=== PATIENT | female | born 1955 | race Caucasian/White ===

== ENCOUNTER 2016-11-19 14:24 | Outpatient (CLI) | payer OTHER | END 2016-11-19 14:25 | disposition home or self-care (01) | DX: I10 Essential (primary) hypertension (principal); E78.5 Hyperlipidemia, unspecified; E11.9 Type 2 diabetes mellitus without complications; E21.3 Hyperparathyroidism, unspecified ==

== ENCOUNTER 2017-03-24 14:35 | Outpatient (CLI) | payer OTHER | END 2017-03-24 14:36 | disposition home or self-care (01) | LOC: LAB.F 14:35 | PROVIDERS: ATTEND Family Medicine | DX: M79.1 Myalgia (principal) | CPT/HCPCS: 36415; 82550 ==

== ENCOUNTER 2017-03-26 11:13 | Outpatient (CLI) | payer OTHER | END 2017-03-26 11:14 | disposition home or self-care (01) | LOC: DI 11:13 | PROVIDERS: ATTEND Family Medicine | DX: R06.00 Dyspnea, unspecified (principal); I10 Essential (primary) hypertension; I51.7 Cardiomegaly | CPT/HCPCS: 93306 ==

== ENCOUNTER 2018-04-06 08:00 | Outpatient (CLI) | payer OTHER ==
[2018-04-06 17:24] LABS: BASOPHILS # (AUTO) 0.1 10^3/uL (0.0-0.1); BASOPHILS % (AUTO) 0.8 %; EOSINOPHILS # (AUTO) 0.4 10^3/uL (0.0-0.7); HGB - HEMOGLOBIN 12.2 g/dL (12.0-16.0); LYMPHOCYTES # (AUTO) 1.8 10^3/uL (1.5-3.5); LYMPHOCYTES % (AUTO) 24.3 %; MEAN CORPUSCULAR HEMOGLOBIN 28.4 pg (27.0-31.0); MEAN CORPUSCULAR HGB CONC 32.6 g/dL (32.0-36.0); MEAN CORPUSCULAR VOLUME 87.2 fL (81.0-99.0); MEAN PLATELET VOLUME 8.6 fL (7.9-10.8); MONOCYTES # (AUTO) 0.4 10^3/uL (0.0-1.0); MONOCYTES % (AUTO) 5.8 %; NEUTROPHILS # (AUTO) 4.7 10^3/uL (1.5-6.6); NEUTROPHILS % (AUTO) 64.1 %; PLT - PLATELET COUNT 223 10^3/uL (130-450); RED BLOOD COUNT 4.29 10^6/uL (4.20-5.40); WHITE BLOOD COUNT 7.4 x10^3/uL (4.8-10.8)
[2018-04-06 18:02] LABS: HB2 TOTAL 12.7 g/dL; HEMOGLOBIN A1C 0.74 g/dL; HEMOGLOBIN A1C % 7.5 % (4.6-6.2)
[2018-04-06 18:05] LABS: ALBUMIN 3.2 g/dL (3.2-5.5); ALBUMIN/GLOBULIN RATIO 0.9 (1.0-2.2); ALKALINE PHOSPHATASE 93 IU/L (42-121); ALT ALANINE AMINOTRANSFERASE 39 IU/L (10-60); AST ASPARTATE AMINOTRANSFERASE 36 IU/L (10-42); BILIRUBIN,TOTAL 0.6 mg/dL (0.2-1.0); BUN - BLOOD UREA NITROGEN 28 mg/dL (6-20); CALCIUM 9.2 mg/dL (8.5-10.3); CARBON DIOXIDE - CO2 31 mmol/L (21-32); CHLORIDE 102 mmol/L (101-111); CHOL/HDL RATIO 3.9 (<4.4); CHOLESTEROL 246 mg/dL; CREATININE 1.2 mg/dL (0.4-1.0); GFR - MDRD 45 (>89); GLUCOSE 91 mg/dL (70-100); HDL CHOLESTEROL 63 mg/dL; LDL CHOLESTEROL,CALCULATED 160 mg/dL; LDL/HDL RATIO 2.5 (<4.4); SODIUM 141 mmol/L (135-145); TOTAL PROTEIN 6.9 g/dL (6.7-8.2); VLDL CHOLESTEROL 23 mg/dL
== END 2018-04-06 08:01 ==
LOC: LAB.F 08:00
PROVIDERS: ATTEND Family Medicine
DX: I10 Essential (primary) hypertension (principal); E78.5 Hyperlipidemia, unspecified; E11.9 Type 2 diabetes mellitus without complications; E21.3 Hyperparathyroidism, unspecified
CPT/HCPCS: 36415; 80053; 80061; 82043; 83036; 83721; 84443; 85025

== ENCOUNTER 2019-05-04 14:26 | Outpatient (CLI) | payer MEDICARE, OTHER ==
[2019-05-04 17:22] LABS: BASOPHILS # (AUTO) 0.1 10^3/uL (0.0-0.1); BASOPHILS % (AUTO) 0.6 %; EOSINOPHILS # (AUTO) 0.3 10^3/uL (0.0-0.7); HGB - HEMOGLOBIN 10.2 g/dL (12.0-16.0); LYMPHOCYTES # (AUTO) 2.5 10^3/uL (1.5-3.5); LYMPHOCYTES % (AUTO) 24.6 %; MEAN CORPUSCULAR HEMOGLOBIN 22.7 pg (27.0-31.0); MEAN CORPUSCULAR VOLUME 75.6 fL (81.0-99.0); MEAN PLATELET VOLUME 9.9 fL (7.9-10.8); MONOCYTES # (AUTO) 0.4 10^3/uL (0.0-1.0); MONOCYTES % (AUTO) 4.4 %; NEUTROPHILS # (AUTO) 6.7 10^3/uL (1.5-6.6); NEUTROPHILS % (AUTO) 66.9 %; PLT - PLATELET COUNT 410 10^3/uL (130-450); RED CELL DISTRIBUTION WIDTH 14.7 % (12.0-15.0)
[2019-05-04 17:39] LABS: ALBUMIN 3.8 g/dL (3.2-5.5); BILIRUBIN,TOTAL 0.4 mg/dL (0.2-1.0); CALCIUM 9.5 mg/dL (8.5-10.3); CREATININE 1.5 mg/dL (0.4-1.0); TOTAL PROTEIN 7.6 g/dL (6.7-8.2)
== END 2019-05-04 14:27 | disposition home or self-care (01) ==
LOC: LAB.S 14:26
PROVIDERS: ATTEND Nurse Practitioner Psychiatric/Mental Health
DX: F33.1 Major depressive disorder, recurrent, moderate (principal)
CPT/HCPCS: 36415; 80053; 80061; 83036; 83721; 84443; 85025

== ENCOUNTER 2019-06-13 08:08 | Outpatient (CLI) | payer MEDICARE, OTHER ==
[2019-06-13 10:21] LABS: BASOPHILS # (AUTO) 0.1 10^3/uL (0.0-0.1); BASOPHILS % (AUTO) 0.6 %; EOSINOPHILS # (AUTO) 0.3 10^3/uL (0.0-0.7); EOSINOPHILS % (AUTO) 3.3 %; LYMPHOCYTES # (AUTO) 1.6 10^3/uL (1.5-3.5); LYMPHOCYTES % (AUTO) 15.2 %; MEAN CORPUSCULAR HEMOGLOBIN 21.8 pg (27.0-31.0); MEAN CORPUSCULAR VOLUME 75.1 fL (81.0-99.0); MEAN PLATELET VOLUME 9.5 fL (7.9-10.8); MONOCYTES # (AUTO) 0.6 10^3/uL (0.0-1.0); MONOCYTES % (AUTO) 5.6 %; NEUTROPHILS # (AUTO) 7.7 10^3/uL (1.5-6.6); NEUTROPHILS % (AUTO) 74.8 %; PLT - PLATELET COUNT 322 10^3/uL (130-450); RED BLOOD COUNT 4.13 10^6/uL (4.20-5.40); WHITE BLOOD COUNT 10.3 x10^3/uL (4.8-10.8)
[2019-06-13 10:42] LABS: CREATININE,URINE 154.8 mg/dL; MICROALBUM/CREATININE RATIO,UR 7.8 ug/mg (<30.0); MICROALBUMIN,URINE 1.2 mg/dL (0-300.0)
[2019-06-13 10:43] LABS: ALBUMIN 3.4 g/dL (3.2-5.5); ALBUMIN/GLOBULIN RATIO 0.9 (1.0-2.2); ALKALINE PHOSPHATASE 105 IU/L (42-121); ALT ALANINE AMINOTRANSFERASE 26 IU/L (10-60); AST ASPARTATE AMINOTRANSFERASE 24 IU/L (10-42); BILIRUBIN,TOTAL 0.5 mg/dL (0.2-1.0); BUN - BLOOD UREA NITROGEN 34 mg/dL (6-20); CALCIUM 9.2 mg/dL (8.5-10.3); CARBON DIOXIDE - CO2 28 mmol/L (21-32); CHLORIDE 102 mmol/L (101-111); CHOL/HDL RATIO 3.7 (<4.4); CHOLESTEROL 226 mg/dL; CREATININE 1.2 mg/dL (0.4-1.0); GFR - MDRD 45 (>89); GLUCOSE 152 mg/dL (70-100); HDL CHOLESTEROL 61 mg/dL; LDL CHOLESTEROL,CALCULATED 144 mg/dL; LDL/HDL RATIO 2.4 (<4.4); SODIUM 139 mmol/L (135-145); VLDL CHOLESTEROL 21 mg/dL
[2019-06-13 10:49] LABS: HB2 TOTAL 9.3 g/dL; HEMOGLOBIN A1C 0.56 g/dL; HEMOGLOBIN A1C % 7.7 % (4.6-6.2)
== END 2019-06-13 08:09 | disposition home or self-care (01) ==
LOC: LAB.S 08:08
PROVIDERS: ATTEND Family Medicine
DX: I10 Essential (primary) hypertension (principal); E78.5 Hyperlipidemia, unspecified; E11.9 Type 2 diabetes mellitus without complications; E21.3 Hyperparathyroidism, unspecified
CPT/HCPCS: 36415; 80053; 80061; 82043; 82570; 83036; 83721; 84443; 85025

== ENCOUNTER 2019-08-09 06:11 | Day surgery (SDC) | payer MEDICARE, OTHER ==
[2019-08-09] MEDS ORDERED: fentaNYL 100 MCG/2 ML VIAL IVP ONE (06:12)
[2019-08-09] MEDS ORDERED: MIDAZOLAM 2 MG/2 ML VIAL IVP ONE (06:12)
[2019-08-09] MEDS ORDERED: LACTATED RINGERS 1,000 ML IV ONE (07:00)
[2019-08-09] MEDS ORDERED: IOVERSOL 320 50 ML VIAL ONE (07:58)
[2019-08-09] MEDS ORDERED: IOVERSOL 320 100 ML VIAL IVP ONE ×2 (07:58→16:56)
[2019-08-09 08:26] LABS: ALBUMIN 3.2 g/dL (3.2-5.5); ALBUMIN/GLOBULIN RATIO 1.1 (1.0-2.2); BILIRUBIN,TOTAL 0.5 mg/dL (0.2-1.0); CALCIUM 9.1 mg/dL (8.5-10.3); CREATININE 1.6 mg/dL (0.4-1.0); TOTAL PROTEIN 6.1 g/dL (6.7-8.2)
[2019-08-09 08:32] LABS: BASOPHILS # (AUTO) 0.1 10^3/uL (0.0-0.1); BASOPHILS % (AUTO) 0.8 %; EOSINOPHILS # (AUTO) 0.3 10^3/uL (0.0-0.7); EOSINOPHILS % (AUTO) 3.7 %; HGB - HEMOGLOBIN 10.6 g/dL (12.0-16.0); LYMPHOCYTES # (AUTO) 1.7 10^3/uL (1.5-3.5); LYMPHOCYTES % (AUTO) 22.8 %; MEAN CORPUSCULAR HEMOGLOBIN 26.1 pg (27.0-31.0); MEAN CORPUSCULAR HGB CONC 33.5 g/dL (32.0-36.0); MEAN CORPUSCULAR VOLUME 77.8 fL (81.0-99.0); MEAN PLATELET VOLUME 10.1 fL (7.9-10.8); MONOCYTES # (AUTO) 0.6 10^3/uL (0.0-1.0); MONOCYTES % (AUTO) 8.2 %; NEUTROPHILS # (AUTO) 4.8 10^3/uL (1.5-6.6); NEUTROPHILS % (AUTO) 63.7 %; PLT - PLATELET COUNT 201 10^3/uL (130-450); RED BLOOD COUNT 4.06 10^6/uL (4.20-5.40); RED CELL DISTRIBUTION WIDTH 20.2 % (12.0-15.0); WHITE BLOOD COUNT 7.5 x10^3/uL (4.8-10.8)
[2019-08-09 08:33] VITALS: BP 126/61
[2019-08-09] MEDS ORDERED: IOVERSOL 320 50 ML VIAL PO ONE (16:56)
--- NOTE | 2019-08-09 18:32 | CT Report ---
Reason: Nearly obstructing ano/rectal mass Procedure Date: 08/09/2019 Accession Number: [id number] / [id number] Procedure: CT - Abdomen/Pelvis W CPT Code: Final Report FULL RESULT: EXAM: CT ABDOMEN AND PELVIS EXAM DATE: 08/09/2019 10:38 AM. CLINICAL HISTORY: Nearly obstructing ano/rectal mass. COMPARISONS: None. TECHNIQUE: Routine helical CT imaging was performed through the abdomen and pelvis. IV contrast: 100 cc Optiray 320. Enteric contrast: Yes. Reconstructions: Coronal and sagittal. In accordance with CT protocol optimization, one or more of the following dose reduction techniques were utilized for this exam: automated exposure control, adjustment of mA and/or KV based on patient size, or use of iterative reconstructive technique. FINDINGS: Lung Bases: Clear. Liver: Normal size and contour without suspicious lesion. Gallbladder/Bile Ducts: Porcelain gallbladder. No calcified gallstones or pericholecystic infiltration. No dilated bile duct. Spleen: Normal. Small accessory splenule. Pancreas: Unremarkable. Adrenal Glands: A 13 mm relatively hypodense nodule of the right adrenal apex and mild thickening of left adrenal apex. No obviously suspicious nodule. Kidneys: Suspect small bilateral parapelvic renal cysts. Few tiny cortical cysts and a 4 cm exophytic cyst from the right inferior pole. Otherwise normal symmetrical parenchymal enhancement which argues against hydronephrosis. No mass or perinephric fluid. Peritoneal Cavity/Bowel: No dilatation of the opacified small bowel. Enteric contrast has progressed to the proximal ascending colon. Suggestion of anorectal mass 3.6 cm in transverse diameter (of similar density to intraluminal content more proximally) and irregularly enhancing lower rectal thickening approximately 9 cm in length (coronal 32). More proximal colon measures up to 6 cm in diameter. Mild haziness of mesorectal fat. Small perirectal lymph nodes, largest 6 mm short axis posteriorly on the left (84). Several small nodes along the inferior mesenteric vessels, largest 0.8 cm short axis (73). No ascites or free air. No omental infiltration or suspicious nodular implant. 2 benign-appearing densely calcified nodules 10 mm and 5 mm in anterior left abdomen near the umbilical level. Retroperitoneum: No mass or adenopathy. Pelvic Organs: No gross abnormality of the partially distended bladder. Mildly lobular uterine contour compatible with small fibroids. Unremarkable ovaries. No abnormal fluid collection or pathologic adenopathy. Mild presacral edema. Vasculature: Calcified plaques of the distal abdominal aorta. No aneurysm. Bones: Mild levoscoliosis and degenerative changes of the spine. No aggressive bone destructive process identified. IMPRESSION: 1. Anorectal mass-like thickening consistent with the reported history. Normal small bowel caliber and no linda colonic dilatation to suggest high-grade obstruction. 2. Mild infiltration of mesorectal fat. Nonspecific subcentimeter perirectal and inferior mesenteric lymph nodes. 3. No solid visceral metastasis. No ascites. 4. Porcelain gallbladder. Consider elective cholecystectomy. 5. Mild nodular adrenal thickening, likely hyperplastic or adenomatous change. No obviously suspicious adrenal lesion. 6. Bilateral renal cysts. No convincing hydronephrosis. RADIA
== END 2019-08-09 06:12 | disposition home or self-care (01) ==
LOC: SDS 06:11
PROVIDERS: ATTEND Surgery
PROC: 0DBP8ZX Excision of Rectum, Via Natural or Artificial Opening Endoscopic, Diagnostic (ICD-10-PCS; principal; 2019-08-09 07:30)
DX: C20 Malignant neoplasm of rectum (principal); I10 Essential (primary) hypertension; E11.42 Type 2 diabetes mellitus with diabetic polyneuropathy; Z79.4 Long term (current) use of insulin; Z79.899 Other long term (current) drug therapy
CPT/HCPCS: 36415; 45331; 74177; 80053; 82378; 85025; J7120; Q9967

== ENCOUNTER 2019-09-11 13:23 | Outpatient (CLI) | payer MEDICARE, OTHER ==
[2019-09-11 18:36] LABS: BASOPHILS # (AUTO) 0.1 10^3/uL (0.0-0.1); BASOPHILS % (AUTO) 0.6 %; EOSINOPHILS # (AUTO) 0.5 10^3/uL (0.0-0.7); EOSINOPHILS % (AUTO) 3.7 %; HGB - HEMOGLOBIN 12.9 g/dL (12.0-16.0); LYMPHOCYTES # (AUTO) 2.2 10^3/uL (1.5-3.5); LYMPHOCYTES % (AUTO) 17.5 %; MEAN CORPUSCULAR HEMOGLOBIN 25.8 pg (27.0-31.0); MEAN CORPUSCULAR HGB CONC 31.5 g/dL (32.0-36.0); MEAN PLATELET VOLUME 9.8 fL (7.9-10.8); MONOCYTES # (AUTO) 0.7 10^3/uL (0.0-1.0); MONOCYTES % (AUTO) 5.3 %; NEUTROPHILS % (AUTO) 72.3 %; PLT - PLATELET COUNT 311 10^3/uL (130-450); RED CELL DISTRIBUTION WIDTH 19.2 % (12.0-15.0); WHITE BLOOD COUNT 12.5 x10^3/uL (4.8-10.8)
[2019-09-11 18:52] LABS: HB2 TOTAL 13.1 g/dL; HEMOGLOBIN A1C 0.71 g/dL; HEMOGLOBIN A1C % 7.1 % (4.6-6.2)
[2019-09-11 19:00] LABS: ALBUMIN/GLOBULIN RATIO 1.1 (1.0-2.2); ALKALINE PHOSPHATASE 103 IU/L (42-121); ALT ALANINE AMINOTRANSFERASE 29 IU/L (10-60); AST ASPARTATE AMINOTRANSFERASE 37 IU/L (10-42); BILIRUBIN,TOTAL 0.8 mg/dL (0.2-1.0); BUN - BLOOD UREA NITROGEN 42 mg/dL (6-20); CALCIUM 9.7 mg/dL (8.5-10.3); CARBON DIOXIDE - CO2 28 mmol/L (21-32); CHLORIDE 103 mmol/L (101-111); CHOL/HDL RATIO 3.9 (<4.4); CHOLESTEROL 282 mg/dL; CREATININE 1.4 mg/dL (0.4-1.0); GFR - MDRD 38 (>89); GLUCOSE 172 mg/dL (70-100); HDL CHOLESTEROL 73 mg/dL; LDL CHOLESTEROL,CALCULATED 184 mg/dL; LDL/HDL RATIO 2.5 (<4.4); SODIUM 139 mmol/L (135-145); TOTAL PROTEIN 7.5 g/dL (6.7-8.2); VLDL CHOLESTEROL 25 mg/dL
== END 2019-09-11 23:59 | disposition home or self-care (01) ==
LOC: LAB.WCP 13:23
PROVIDERS: ATTEND Family Medicine
DX: E11.9 Type 2 diabetes mellitus without complications (principal)
CPT/HCPCS: 36415; 80053; 80061; 83036; 83721; 85025

== ENCOUNTER 2019-09-20 08:00 | Outpatient (CLI) | payer MEDICARE, OTHER ==
[2019-09-20 17:09] LABS: CREATININE 1.4 mg/dL (0.4-1.0)
== END 2019-09-20 23:59 | disposition home or self-care (01) ==
LOC: LAB.S 08:00
PROVIDERS: ATTEND Surgery
DX: C20 Malignant neoplasm of rectum (principal)
CPT/HCPCS: 36415; 82565

== ENCOUNTER 2019-12-27 08:21 | Outpatient (CLI) | payer MEDICARE, OTHER ==
[2019-12-27 08:57] LABS: HB2 TOTAL 12.8 g/dL; HEMOGLOBIN A1C 0.65 g/dL; HEMOGLOBIN A1C % 6.8 % (4.6-6.2)
[2019-12-27 09:00] LABS: CHOL/HDL RATIO 3.4 (<4.4); CHOLESTEROL 244 mg/dL; HDL CHOLESTEROL 71 mg/dL; LDL CHOLESTEROL,CALCULATED 125 mg/dL; LDL/HDL RATIO 1.8 (<4.4); VLDL CHOLESTEROL 48 mg/dL
== END 2019-12-27 08:22 | disposition home or self-care (01) ==
LOC: LAB 08:21
PROVIDERS: ATTEND Family Medicine
DX: E11.9 Type 2 diabetes mellitus without complications (principal)
CPT/HCPCS: 80061; 83036; 83721

== ENCOUNTER 2020-01-30 13:59 | Outpatient (CLI) | payer MEDICARE, OTHER | END 2020-01-30 14:00 | disposition home or self-care (01) | LOC: COV 13:59 | PROVIDERS: ATTEND Surgery | DX: Z01.812 Encounter for preprocedural laboratory examination (principal); C18.9 Malignant neoplasm of colon, unspecified | CPT/HCPCS: 81599 ==

== ENCOUNTER 2020-02-01 07:57 | Day surgery (SDC) | payer MEDICARE, OTHER ==
[~2020-02-01 07:57] MED LIST: BUPIVACAINE 0.5% PF 30 ML VIAL ONE; LACTATED RINGERS 1,000 ML IV ONE; LIDOCAINE 1%-EPI 1:100000 20 ML MDV ONE; SODIUM CHLORIDE 0.9% 10 ML ONE
[2020-02-01] MEDS ORDERED: MIDAZOLAM 2 MG/2 ML VIAL IVP ONE (07:58)
[2020-02-01] MEDS ORDERED: LIDOCAINE-MPF 2% 5 ML VIAL IM ONE (07:58)
[2020-02-01] MEDS ORDERED: PROPOFOL 200 MG/20 ML VIAL IVP ONE (07:58)
--- NOTE | 2020-02-01 08:23 | ANESTHESIA ---
Pre-Anesthesia VS, & Labs - Diagnosis colon adenocarcinoma stage IIA - Procedure portacath placement Vital Signs: Temp Pulse Resp BP Pulse Ox 36.9 C 94 16 150/78 H 100 02/01/20 07:53 02/01/20 07:53 02/01/20 07:53 02/01/20 07:53 02/01/20 07:53 Height 5 ft 6 in Weight (kg) 93.7 kg Body Mass Index 32.5 - NPO >8 hours - Is Patient ?: No Home Medications and Allergies Insulin Glargine [Lantus Solostar] 18 unit SUBQ DAILY 01/09/13 Levothyroxine [Synthroid] 1 mcg PO DAILY 01/09/13 Venlafaxine HCl [Effexor Xr] 150 mg PO BID 01/09/13 Amlodipine Besylate 10 mg PO DAILY 08/09/19 Aspirin 2 tab PO DAILY 08/09/19 Dulaglutide [Trulicity] 0.75 mg SQ DAILY 08/09/19 hydroCHLOROthiazide [Hydrochlorothiazide] 25 mg PO DAILY 08/09/19 Capecitabine [Xeloda] 1,650 mg PO BID 10/05/19 Ondansetron HCl [Zofran] 8 mg PO BID PRN 10/10/19 Cariprazine HCl [Vraylar] 1 cap PO DAILY 12/19/19 Prochlorperazine [Compazine] 10 mg PO Q6HR PRN 12/19/19 Allergies/Adverse Reactions: Allergies Allergy/AdvReac Type Severity Reaction Status Date / Time lamotrigine [From Lamictal] Allergy Unknown Nausea Verified 01/17/20 09:52 olanzapine [From Zyprexa] Allergy Unknown Nausea Verified 01/17/20 09:52 codeine [Codeine] AdvReac Unknown Nausea Verified 01/17/20 09:52 lactose AdvReac Unknown Nausea Verified 01/17/20 09:52 lithium AdvReac Unknown Nausea Verified 01/17/20 09:52 Anes History & Medical History - Anesthetic History Anesthesia Complications: reports: No previous complications Family history of Anesthesia Complications: Denies Family history of Malignant Hyperthermia: Denies - Medical History Cardiovascular: reports: Hypertension, High cholesterol Pulmonary: reports: None Gastrointestinal: reports: GERD Urinary: reports: None Musculoskeletal: reports: None Endocrine/Autoimmune: reports: Type 2 diabetes, HyPOthyroidism Skin: reports: None Smoking Status: Never smoker - Surgical History Eyes Ears Nose Throat (EENT): Cataracts, Tonsil/Adenoidectomy
--- NOTE | 2020-02-01 08:44 | ANESTHESIA ---
Pre-Anesthesia VS, & Labs - Diagnosis colon adenocarcinoma - Procedure portacath placement Vital Signs: Temp Pulse Resp BP Pulse Ox 36.9 C 94 16 150/78 H 100 02/01/20 07:53 02/01/20 07:53 02/01/20 07:53 02/01/20 07:53 02/01/20 07:53 Height 5 ft 6 in Weight (kg) 93.7 kg Body Mass Index 32.5 - NPO >8 hours - Is Patient ?: No Home Medications and Allergies Insulin Glargine [Lantus Solostar] 18 unit SUBQ DAILY 01/09/13 Levothyroxine [Synthroid] 1 mcg PO DAILY 01/09/13 Venlafaxine HCl [Effexor Xr] 150 mg PO BID 01/09/13 Amlodipine Besylate 10 mg PO DAILY 08/09/19 Aspirin 2 tab PO DAILY 08/09/19 Dulaglutide [Trulicity] 0.75 mg SQ DAILY 08/09/19 hydroCHLOROthiazide [Hydrochlorothiazide] 25 mg PO DAILY 08/09/19 Capecitabine [Xeloda] 1,650 mg PO BID 10/05/19 Ondansetron HCl [Zofran] 8 mg PO BID PRN 10/10/19 Cariprazine HCl [Vraylar] 1 cap PO DAILY 12/19/19 Prochlorperazine [Compazine] 10 mg PO Q6HR PRN 12/19/19 Allergies/Adverse Reactions: Allergies Allergy/AdvReac Type Severity Reaction Status Date / Time lamotrigine [From Lamictal] Allergy Unknown Nausea Verified 01/17/20 09:52 olanzapine [From Zyprexa] Allergy Unknown Nausea Verified 01/17/20 09:52 codeine [Codeine] AdvReac Unknown Nausea Verified 01/17/20 09:52 lactose AdvReac Unknown Nausea Verified 01/17/20 09:52 lithium AdvReac Unknown Nausea Verified 01/17/20 09:52 Anes History & Medical History - Anesthetic History Anesthesia Complications: reports: No previous complications Family history of Anesthesia Complications: Denies Family history of Malignant Hyperthermia: Denies - Medical History Cardiovascular: reports: Hypertension, High cholesterol Pulmonary: reports: None Gastrointestinal: reports: GERD Urinary: reports: None, Renal insuffiency Neuro: reports: None Musculoskeletal: reports: None Endocrine/Autoimmune: reports: Type 2 diabetes, HyPOthyroidism Skin: reports: None Smoking Status: Never smoker Psychosocial: reports: Depression, Anxiety - Surgical History Eyes Ears Nose Throat (EENT): Cataracts, Tonsil/Adenoidectomy Exam General: Alert, Oriented x3, Cooperative, No acute distress Dental: Dentures full Upper, Dentures full Lower Mouth Openin Fingerbreadth Neck Mobility: Normal Mallampati classification: II Thyromental Distance: 4-6 cm Respiratory: Lungs clear, Normal breath sounds, No respiratory distress, No accessory muscle use Cardiovascular: Regular rate, Normal S1, Normal S2, No murmurs Abdomen: Normal bowel sounds, Soft, No tenderness, No hepatospenomegaly, No masses Extremities: No clubbing, No cyanosis, No edema, Normal pulses, No tenderness/swelling Neurological: Normal gait, Normal speech, Strength at 5/5 X4 ext, Normal tone, Sensation intact, Cranial nerves 3-12 NL, Reflexes 2+ Mental/Cognitive Status: Alert/Oriented X3, Normal for patient Cognitive Status: Within normal limits Plan Anesthesia Type: MAC Consent for Procedure(s) Verified and Reviewed: Yes Code Status: Attempt Resuscitation ASA classification: 3-Severe systemic disease Is this case an emergency?: No
[2020-02-01] MEDS ORDERED: BUPIVACAINE 0.5%-EPI 1:200000 PF 30 ML VIAL SUBQ ONE (09:22)
[2020-02-01] MEDS ORDERED: LIDOCAINE 1%-EPI 1:100000 30 ML MDV SUBQ ONE (09:24)
--- NOTE | 2020-02-01 09:29 | OPERATIVE REPORT ---
Operative Report - General Planned Procedure: Left Subclavian Power Port Placement Pre-Op Diagnosis: Colorectal Cancer Procedure Performed: Left Subclavian Power Port Placement Post Op Diagnosis: Colorectal cancer - Procedure Note Primary Surgeon: Theodora Anesthesia Provider: DIONE Cavanaugh Anesthesia Technique: Local, MAC Estimated Blood Loss (mL): 10 Indications: Facilitation of chemotherapy Findings: Port in good position in the SVC Complications: None apparent - Other Other Information/Narrative: After obtaining informed consent, the patient is brought to the operating room and placed in supine position on the operating table. Following successful induction of sedation with monitored anesthesia care and appropriate padding of all bony prominences, the left chest and neck were prepped and draped in the standard surgical fashion. A timeout was held per scope protocol. All elements of the surgical safety checklist were followed before, during, and after the procedure. Following infiltration with local anesthetic to create a field block, the left subclavian vein was accessed in the deltopectoral groove. The J-wire was gently placed into the vein. Fluoroscopy was used to confirm the position of the wire and in the subclavian vein. We anesthetized the existing healed scar in the area around it for placement of the port itself. An incision was created here and carried down through the skin and subcutaneous tissue. A pocket was created with blunt dissection. The port tubing was attached to the tunneling device and passed from the access site of the vein into the pocket. It was trimmed to an appropriate length and the port attached. The port was sewn into place in the pocket. The dilator and introducer were then passed over the J-wire that was in the subclavian vein. The J-wire and dilator were removed leaving only the introducer. The tubing was then passed through the introducer and the introducer cracked and removed per reel and rewinder operator's directions. The port was then checked for function and flushed and malcolm easily. Additional local anesthetic was applied to the chest wall. The port pocket was closed with interrupted Vicryl sutures and Monocryl stitches were placed in both skin incision sites. All sponge, needle, and instrument counts were correct at the conclusion of the case. Chest x-ray in the postanesthesia care unit revealed the port in good position in the superior vena cava without evidence of pneumothorax.
[2020-02-01] MEDS ORDERED: oxyCODONE 5 MG TABLET PO PRN (09:33)
[2020-02-01] MEDS ORDERED: ONDANSETRON 4 MG/2 ML VIAL IVP PRN (09:33)
[2020-02-01] MEDS ORDERED: LACTATED RINGERS 1,000 ML IV ONE (09:34)
[2020-02-01 09:55] VITALS: BP 125/75
--- NOTE | 2020-02-01 13:57 | XRAY Report ---
Reason: Port Procedure Date: 02/01/2020 Accession Number: [id number] / [id number] Procedure: XR - Chest for Line Placement CPT Code: Final Report FULL RESULT: EXAM: CHEST RADIOGRAPHY EXAM DATE: 02/01/2020 10:04 AM. CLINICAL HISTORY: Central line placement. COMPARISON: CHEST 2 VIEW PA/LAT 03/17/2017 11:21 AM. TECHNIQUE: 1 view. FINDINGS: Lungs/Pleura: No focal opacities evident. No pleural effusion. No pneumothorax. Mediastinum: Within exam limitations, the cardiomediastinal contour is normal. Other: Left sided [id number] is seen terminating in the mid SVC region. IMPRESSION: Left-sided portacatheter placement. No pneumothorax. RADIA
--- NOTE | 2020-02-01 13:57 | XRAY Report ---
Reason: PORTACATH Procedure Date: 02/01/2020 Accession Number: [id number] / [id number] Procedure: FL - OR Port-A-Cath CPT Code: Final Report FULL RESULT: EXAM: FLUOROSCOPIC GUIDANCE EXAM DATE: 02/01/2020 09:20 AM. CLINICAL HISTORY: PORTACATH. COMPARISON: None. FINDINGS: Single limited image demonstrates left Port-A-Cath extending to the distal SVC region. IMPRESSION: Fluoroscopic guidance provided for Port-A-Cath placement. Total fluoroscopy time: 0 seconds. Number of images: 1. RADIA
== END 2020-02-01 07:58 | disposition home or self-care (01) ==
LOC: SDS 07:57
PROVIDERS: ATTEND Surgery
DX: C18.9 Malignant neoplasm of colon, unspecified (principal); I10 Essential (primary) hypertension; E11.9 Type 2 diabetes mellitus without complications; E03.9 Hypothyroidism, unspecified
CPT/HCPCS: 36561; C1788; J7120; 71045

== ENCOUNTER 2021-01-24 12:37 | Outpatient (CLI) | payer MEDICARE, OTHER ==
--- NOTE | 2021-01-24 17:25 | Ultrasound Report ---
PROCEDURE: Retroperitoneal INDICATIONS: URINARY INCONTINENCE TECHNIQUE: Real-time scanning was performed of the retroperitoneal organs, with image documentation. COMPARISON: Prior CT scan dated 10/16/2020.. FINDINGS: Kidneys: Kidneys are normal in size. Right kidney measures 11.0 cm long; left kidney measures 10.8 cm long. Right renal cortical thickness is 1.4 cm; left renal cortical thickness is 1.5 cm. No barb d masses, hydronephrosis, or nephrolithiasis. Bilateral peripelvic cysts redemonstrated largest on t he right measuring 19 mm and 17 mm on the left. Right renal cortical cysts again noted measuring 4.4 cm similar to prior exam. Miscellaneous: No free abdominal fluid. Prevoid bladder volume estimated at 60 cc and no post void r esidual. IMPRESSION: Bilateral renal cysts; otherwise grossly normal appearance of the kidneys bilaterally. Reviewed by: PAM Sow on 01/24/2021 5:24 PM PDT Approved by: Anastasiia Ferguson MD on 01/24/2021 5:24 PM PDT Station ID: [id number]
== END 2021-01-24 12:38 | disposition home or self-care (01) ==
LOC: DI 12:37
PROVIDERS: ATTEND Family Medicine
DX: N28.1 Cyst of kidney, acquired (principal)

== ENCOUNTER 2021-04-10 12:47 | Outpatient (CLI) | payer MEDICARE, OTHER ==
[2021-04-10 15:09] LABS: BASOPHILS # (AUTO) 0.1 10^3/uL (0.0-0.1); BASOPHILS % (AUTO) 0.9 %; EOSINOPHILS # (AUTO) 0.4 10^3/uL (0.0-0.7); HCT - HEMATOCRIT 38.2 % (37.0-47.0); HGB - HEMOGLOBIN 12.4 g/dL (12.0-16.0); LYMPHOCYTES # (AUTO) 0.7 10^3/uL (1.5-3.5); LYMPHOCYTES % (AUTO) 11.3 %; MEAN CORPUSCULAR HEMOGLOBIN 29.5 pg (27.0-31.0); MEAN CORPUSCULAR HGB CONC 32.5 g/dL (32.0-36.0); MEAN PLATELET VOLUME 9.9 fL (7.9-10.8); MONOCYTES # (AUTO) 0.4 10^3/uL (0.0-1.0); MONOCYTES % (AUTO) 5.6 %; NEUTROPHILS # (AUTO) 4.7 10^3/uL (1.5-6.6); PLT - PLATELET COUNT 183 10^3/uL (130-450); RED CELL DISTRIBUTION WIDTH 13.6 % (12.0-15.0); WHITE BLOOD COUNT 6.4 x10^3/uL (4.8-10.8)
[2021-04-10 15:21] LABS: ALBUMIN/GLOBULIN RATIO 1.1 (1.0-2.2); BILIRUBIN,TOTAL 0.5 mg/dL (0.2-1.0); CALCIUM 9.9 mg/dL (8.5-10.3); CREATININE 1.5 mg/dL (0.4-1.0); POTASSIUM 4.3 mmol/L (3.5-5.0); TOTAL PROTEIN 7.5 g/dL (6.7-8.2)
[2021-04-10 20:06] LABS: ESTIMATED AVERAGE GLUCOSE 186 mg/dL (70-100); HEMOGLOBIN A1c% 8.1 % (4.27-6.07)
== END 2021-04-10 12:48 | disposition home or self-care (01) ==
LOC: LAB.S 12:47
PROVIDERS: ATTEND Family Medicine
DX: E11.22 Type 2 diabetes mellitus with diabetic chronic kidney disease (principal); N18.30 Chronic kidney disease, stage 3 unspecified
CPT/HCPCS: 36415; 80053; 83036; 85025

== ENCOUNTER 2021-10-20 06:23 | Day surgery (SDC) | payer MEDICARE, OTHER ==
[2021-10-20] MEDS ORDERED: LACTATED RINGERS 1,000 ML IV ONE (06:45)
--- NOTE | 2021-10-20 07:35 | ANESTHESIA ---
Pre-Anesthesia VS, & Labs - Diagnosis histroy of rectal cancer - Procedure colonoscopy Vital Signs: Temp Pulse Resp BP Pulse Ox 36.5 C 96 12 134/78 H 98 10/20/21 06:34 10/20/21 06:34 10/20/21 06:34 10/20/21 06:34 10/20/21 06:34 Height: 5 ft 6 in Weight (kg): 110.6 kg Body Mass Index: 39.3 BMI Classification: Obese - NPO >8 hours - Is Patient ?: No - Lab Results Current Lab Results: Laboratory Tests 10/20/21 07:20: POC Whole Bld Glucose 238 H Home Medications and Allergies Home Medications: Ambulatory Orders Ascorbic Acid [Vitamin C] 1,000 mg PO DAILY 10/13/21 Calcium Carb/Mag Ox/Zinc Sulf [Zrz-Yxx-Nied 334-134-5 mg Tab] 1 each PO DAILY 10/13/21 Cholecalciferol [Vitamin D3] 25 mcg PO DAILY 10/13/21 Ferrous Sulfate 325 mg PO ONCE 10/13/21 Insulin Aspart [NovoLOG] 5 unit SUBQ TIDWM 10/13/21 Pravastatin [Pravachol] 40 mg PO QPM 10/13/21 Vitamin B Complex 1 each PO DAILY 10/13/21 Insulin Glargine [Lantus Solostar] 60 unit SUBQ DAILY 01/09/13 Levothyroxine [Synthroid] 125 mcg PO DAILY 01/09/13 Amlodipine Besylate 10 mg PO DAILY 08/09/19 Aspirin 325 mg PO DAILY 08/09/19 hydroCHLOROthiazide [Hydrochlorothiazide] 25 mg PO DAILY 08/09/19 Cariprazine HCl [Vraylar] 1.5 mg PO DAILY 12/19/19 Venlafaxine HCl [Venlafaxine HCl ER] 225 mg PO DAILY 06/14/20 Ascorbic Acid [Vitamin C] 1,000 mg PO DAILY 10/13/21 Calcium Carb/Mag Ox/Zinc Sulf [[id number]-Oii-Kylz 334-134-5 mg Tab] 1 each PO DAILY 10/13/21 Cholecalciferol [Vitamin D3] 25 mcg PO DAILY 10/13/21 Ferrous Sulfate 325 mg PO ONCE 10/13/21 Insulin Aspart [NovoLOG] 5 unit SUBQ TIDWM 10/13/21 Pravastatin [Pravachol] 40 mg PO QPM 10/13/21 Vitamin B Complex 1 each PO DAILY 10/13/21 Allergies/Adverse Reactions: Allergies Allergy/AdvReac Type Severity Reaction Status Date / Time lamotrigine [From Lamictal] Allergy Unknown Nausea Verified 01/22/21 13:50 olanzapine [From Zyprexa] Allergy Unknown Nausea Verified 01/22/21 13:50 codeine [Codeine] AdvReac Unknown Nausea Verified 01/22/21 13:50 lactose AdvReac Unknown Nausea Verified 01/22/21 13:50 lithium AdvReac Unknown Nausea Verified 01/22/21 13:50 Anes History & Medical History - Anesthetic History Anesthesia Complications: reports: No previous complications - Medical History Cardiovascular: reports: Hypertension, High cholesterol, Murmur Pulmonary: reports: None Gastrointestinal: reports: Other Urinary: reports: Incontinence, Renal insuffiency Neuro: reports: None Musculoskeletal: reports: None Endocrine/Autoimmune: reports: Type 2 diabetes, HyPOthyroidism Skin: reports: None Smoking Status: Never smoker History of Cancer?: Yes - Surgical History General: reports: Bowel surgery, Colonoscopy Eyes Ears Nose Throat (EENT): reports: Cataracts, Tonsil/Adenoidectomy Exam General: Alert Dental: WNL Mallampati classification: III Thyromental Distance: greater than 6 cm Respiratory: Lungs clear Cardiovascular: Regular rate Plan Anesthesia Type: Total IV Consent for Procedure(s) Verified and Reviewed: Yes Code Status: Attempt Resuscitation ASA classification: 3-Severe systemic disease Is this case an emergency?: No
[2021-10-20] MEDS ORDERED: PROPOFOL 500 MG/50 ML 500 MG/50 ML VIAL ONE (08:13)
[2021-10-20] MEDS ORDERED: LACTATED RINGERS 500 ML IV ONE (08:27)
[2021-10-20 09:18] VITALS: BP 137/80
--- NOTE | 2021-10-20 12:34 | ANESTHESIA POST OP EVALUATION ---
Anesthesia Post Eval - Post Anesthesia Eval Vitals: Last Vital Signs Temp 36.2 C L 10/20/21 08:55 Pulse 72 10/20/21 09:17 Resp 16 10/20/21 09:17 BP 137/80 H 10/20/21 09:17 Pulse Ox 99 10/20/21 09:17 CV Function Including HR & BP: Stable Pain Control: Satisfactory Nausea & Vomiting: Negative Mental Status: Baseline Respiratory Status: Airway Patent Hydration Status: Satisfactory Anesthesia Complications: None
== END 2021-10-20 06:24 | disposition home or self-care (01) ==
LOC: SDS 06:23
PROVIDERS: ATTEND Surgery
PROC: 0DBK8ZZ Excision of Ascending Colon, Via Natural or Artificial Opening Endoscopic (ICD-10-PCS; principal; 2021-10-20 07:30)
DX: Z08 Encounter for follow-up examination after completed treatment for malignant neoplasm (principal); D12.2 Benign neoplasm of ascending colon; Z92.21 Personal history of antineoplastic chemotherapy; Z85.048 Personal history of other malignant neoplasm of rectum, rectosigmoid junction, and anus; E11.22 Type 2 diabetes mellitus with diabetic chronic kidney disease; I12.9 Hypertensive chronic kidney disease with stage 1 through stage 4 chronic kidney disease, or unspecified chronic kidney disease; N18.30 Chronic kidney disease, stage 3 unspecified; Z79.4 Long term (current) use of insulin; F43.10 Post-traumatic stress disorder, unspecified; N28.9 Disorder of kidney and ureter, unspecified; E66.9 Obesity, unspecified; Z68.39 Body mass index [BMI] 39.0-39.9, adult
CPT/HCPCS: 44389; J7120

== ENCOUNTER 2021-12-01 12:08 | Outpatient (CLI) | payer MEDICARE, OTHER ==
[2021-12-01 14:22] LABS: BASOPHILS # (AUTO) 0.1 10^3/uL (0.0-0.1); BASOPHILS % (AUTO) 1.2 %; EOSINOPHILS # (AUTO) 0.6 10^3/uL (0.0-0.7); EOSINOPHILS % (AUTO) 7.5 %; HCT - HEMATOCRIT 41.3 % (37.0-47.0); HGB - HEMOGLOBIN 13.7 g/dL (12.0-16.0); LYMPHOCYTES # (AUTO) 1.3 10^3/uL (1.5-3.5); LYMPHOCYTES % (AUTO) 15.9 %; MEAN CORPUSCULAR HEMOGLOBIN 30.3 pg (27.0-31.0); MEAN CORPUSCULAR HGB CONC 33.2 g/dL (32.0-36.0); MEAN CORPUSCULAR VOLUME 91.4 fL (81.0-99.0); MEAN PLATELET VOLUME 10.1 fL (7.9-10.8); MONOCYTES # (AUTO) 0.5 10^3/uL (0.0-1.0); MONOCYTES % (AUTO) 6.4 %; NEUTROPHILS # (AUTO) 5.4 10^3/uL (1.5-6.6); PLT - PLATELET COUNT 230 10^3/uL (130-450); RED BLOOD COUNT 4.52 10^6/uL (4.20-5.40); RED CELL DISTRIBUTION WIDTH 14.2 % (12.0-15.0); WHITE BLOOD COUNT 8.1 x10^3/uL (4.8-10.8)
[2021-12-01 14:39] LABS: ALBUMIN/GLOBULIN RATIO 1.2 (1.0-2.2); ALKALINE PHOSPHATASE 83 IU/L (42-121); ALT ALANINE AMINOTRANSFERASE 42 IU/L (10-60); AST ASPARTATE AMINOTRANSFERASE 34 IU/L (10-42); BILIRUBIN,TOTAL 0.8 mg/dL (0.2-1.0); BUN - BLOOD UREA NITROGEN 47 mg/dL (6-20); CALCIUM 10.6 mg/dL (8.5-10.3); CARBON DIOXIDE - CO2 29 mmol/L (21-32); CHLORIDE 96 mmol/L (101-111); CHOL/HDL RATIO 4.1 (<4.4); CHOLESTEROL 276 mg/dL; CREATININE 1.6 mg/dL (0.4-1.0); GFR - MDRD 32 (>89); GLUCOSE 243 mg/dL (70-100); HDL CHOLESTEROL 68 mg/dL; LDL CHOLESTEROL,CALCULATED 135 mg/dL; SODIUM 140 mmol/L (135-145); TOTAL PROTEIN 7.4 g/dL (6.7-8.2); TRIGLYCERIDES 367 mg/dL; VLDL CHOLESTEROL 73 mg/dL
[2021-12-01 14:41] LABS: ESTIMATED AVERAGE GLUCOSE 180 mg/dL (70-100); HEMOGLOBIN A1c% 7.9 % (4.27-6.07)
[2021-12-01 15:25] LABS: CREATININE,URINE 317.9 mg/dL; MICROALBUMIN,URINE 44.2 mg/dL (0-300.0)
== END 2021-12-01 12:09 | disposition home or self-care (01) ==
LOC: LAB.S 12:08
PROVIDERS: ATTEND Family Medicine
DX: E11.9 Type 2 diabetes mellitus without complications (principal)
CPT/HCPCS: 36415; 80053; 80061; 82043; 82570; 83036; 83721; 85025

== ENCOUNTER 2022-11-09 11:52 | Outpatient (CLI) | payer MEDICARE, OTHER ==
[2022-11-09 15:47] LABS: BASOPHILS # (AUTO) 0.1 10^3/uL (0.0-0.1); EOSINOPHILS # (AUTO) 0.4 10^3/uL (0.0-0.7); EOSINOPHILS % (AUTO) 5.2 %; HCT - HEMATOCRIT 40.9 % (37.0-47.0); HGB - HEMOGLOBIN 13.6 g/dL (12.0-16.0); LYMPHOCYTES % (AUTO) 14.1 %; MEAN CORPUSCULAR HEMOGLOBIN 29.3 pg (27.0-31.0); MEAN CORPUSCULAR HGB CONC 33.3 g/dL (32.0-36.0); MEAN CORPUSCULAR VOLUME 88.1 fL (81.0-99.0); MEAN PLATELET VOLUME 10.2 fL (7.9-10.8); MONOCYTES # (AUTO) 0.4 10^3/uL (0.0-1.0); MONOCYTES % (AUTO) 5.4 %; NEUTROPHILS # (AUTO) 5.2 10^3/uL (1.5-6.6); NEUTROPHILS % (AUTO) 72.1 %; PLT - PLATELET COUNT 202 10^3/uL (130-450); RED BLOOD COUNT 4.64 10^6/uL (4.20-5.40); RED CELL DISTRIBUTION WIDTH 14.1 % (12.0-15.0); WHITE BLOOD COUNT 7.2 x10^3/uL (4.8-10.8)
[2022-11-09 17:03] LABS: ALBUMIN 3.7 g/dL (3.2-5.5); ALKALINE PHOSPHATASE 67 IU/L (42-121); ALT ALANINE AMINOTRANSFERASE 44 IU/L (10-60); AST ASPARTATE AMINOTRANSFERASE 34 IU/L (10-42); BILIRUBIN,TOTAL 0.6 mg/dL (0.2-1.0); BUN - BLOOD UREA NITROGEN 38 mg/dL (6-20); CARBON DIOXIDE - CO2 26 mmol/L (21-32); CHLORIDE 106 mmol/L (101-111); CHOL/HDL RATIO 3.4 (<4.4); CHOLESTEROL 239 mg/dL; CREATININE 1.5 mg/dL (0.4-1.0); GFR - MDRD 34 (>89); GLUCOSE 250 mg/dL (70-100); HDL CHOLESTEROL 71 mg/dL; LDL CHOLESTEROL,CALCULATED 120 mg/dL; LDL/HDL RATIO 1.7 (<4.4); POTASSIUM 4.1 mmol/L (3.5-5.0); SODIUM 142 mmol/L (135-145); TOTAL PROTEIN 7.3 g/dL (6.7-8.2); TRIGLYCERIDES 241 mg/dL; VLDL CHOLESTEROL 48 mg/dL
[2022-11-09 17:07] LABS: THYROID STIMULATING HORMONE 2.33 uIU/mL (0.34-5.60)
[2022-11-09 22:33] LABS: ESTIMATED AVERAGE GLUCOSE 169 mg/dL (70-100); HEMOGLOBIN A1c% 7.5 % (4.27-6.07)
== END 2022-11-09 11:53 | disposition home or self-care (01) ==
LOC: LAB.S 11:52
PROVIDERS: ATTEND Physician Assistant
DX: I10 Essential (primary) hypertension (principal); E11.9 Type 2 diabetes mellitus without complications; E78.5 Hyperlipidemia, unspecified; E03.9 Hypothyroidism, unspecified
CPT/HCPCS: 36415; 80053; 80061; 82043; 82570; 83036; 83721; 84443; 85025

== ENCOUNTER 2023-01-12 07:19 | Day surgery (SDC) | payer MEDICARE, OTHER ==
[2023-01-12] MEDS: LACTATED RINGERS 1,000 ML IV ONE (07:21)
[2023-01-12] MEDS ORDERED: PROPOFOL 500 MG/50 ML 500 MG/50 ML VIAL ONE (07:59)
--- NOTE | 2023-01-12 08:04 | ANESTHESIA ---
Pre-Anesthesia VS, & Labs - Diagnosis history of rectal cancer, polyps - Procedure colonoscopy Vital Signs: Temp Pulse Resp BP Pulse Ox O2 Flow Rate 36 C L 102 H 18 170/90 H 96 01/12/23 07:27 01/12/23 07:27 01/12/23 07:27 01/12/23 07:27 01/12/23 07:27 Height: 5 ft 6 in Weight (kg): 111 kg Body Mass Index: 39.4 BMI Classification: Obese - NPO Other (prep as directed) - Is Patient ?: No - Lab Results Current Lab Results: Laboratory Tests 01/12/23 07:45: POC Whole Bld Glucose 236 H Home Medications and Allergies Home Medications: Ambulatory Orders Calcium Carbonate [Tums (Calcium Carbonate 500mg)] 500 mg PO Q4-6H PRN 01/07/23 DULoxetine [Cymbalta] 60 mg PO DAILY 01/07/23 methocarbamoL [Methocarbamol] 750 mg PO Q6H PRN 01/07/23 Insulin Glargine [Lantus Solostar] 70 unit SUBQ DAILY 01/09/13 Levothyroxine [Synthroid] 125 mcg PO DAILY 01/09/13 Amlodipine Besylate 10 mg PO DAILY 08/09/19 Aspirin 325 mg PO DAILY 08/09/19 hydroCHLOROthiazide [Hydrochlorothiazide] 25 mg PO DAILY 08/09/19 Cariprazine HCl [Vraylar] 1.5 mg PO DAILY 12/19/19 Venlafaxine HCl [Venlafaxine HCl ER] 37.5 mg PO DAILY 06/14/20 Ascorbic Acid [Vitamin C] 1,000 mg PO DAILY 10/13/21 Cholecalciferol [Vitamin D3] 25 mcg PO DAILY 10/13/21 Ferrous Sulfate 325 mg PO DAILY 10/13/21 Insulin Aspart [NovoLOG] 10 unit SUBQ TIDWM 10/13/21 Pravastatin [Pravachol] 40 mg PO QPM 10/13/21 Vitamin B Complex 1 each PO DAILY 10/13/21 Calcium Carbonate [Tums (Calcium Carbonate 500mg)] 500 mg PO Q4-6H PRN 01/07/23 DULoxetine [Cymbalta] 60 mg PO DAILY 01/07/23 methocarbamoL [Methocarbamol] 750 mg PO Q6H PRN 01/07/23 Allergies/Adverse Reactions: Allergies Allergy/AdvReac Type Severity Reaction Status Date / Time lamotrigine [From Lamictal] Allergy Unknown Nausea Verified 01/22/21 13:50 olanzapine [From Zyprexa] Allergy Unknown Nausea Verified 01/22/21 13:50 codeine [Codeine] AdvReac Unknown Nausea Verified 01/22/21 13:50 lactose AdvReac Unknown Nausea Verified 01/22/21 13:50 lithium AdvReac Unknown Nausea Verified 01/22/21 13:50 Anes History & Medical History - Anesthetic History Anesthesia Complications: reports: Prolonged PACU stay, Slow wake-up - Medical History Cardiovascular: reports: Hypertension, High cholesterol, Murmur Pulmonary: reports: None Gastrointestinal: reports: Other Urinary: reports: Incontinence, Renal insuffiency Neuro: reports: None Musculoskeletal: reports: None Endocrine/Autoimmune: reports: Type 2 diabetes, HyPOthyroidism Skin: reports: None Smoking Status: Never smoker History of Cancer?: Yes - Surgical History General: reports: Bowel surgery, Colonoscopy Eyes Ears Nose Throat (EENT): reports: Cataracts, Tonsil/Adenoidectomy Exam General: Alert, Oriented x3, Cooperative Dental: WNL, Other (edentulous) Neck Mobility: Normal Mallampati classification: III Thyromental Distance: greater than 6 cm Respiratory: Lungs clear Cardiovascular: Regular rate Plan Anesthesia Type: Total IV Consent for Procedure(s) Verified and Reviewed: Yes Code Status: Attempt Resuscitation ASA classification: 3-Severe systemic disease Is this case an emergency?: No
[2023-01-12] MEDS: LACTATED RINGERS 200 ML IV ONE (10:25)
[2023-01-12 10:44] VITALS: BP 161/75
--- NOTE | 2023-01-12 14:06 | ANESTHESIA POST OP EVALUATION ---
Anesthesia Post Eval - Post Anesthesia Eval Vitals: Last Vital Signs Temp 36.1 C L 01/12/23 10:43 Pulse 67 01/12/23 10:43 Resp 16 01/12/23 10:43 BP 161/75 H 01/12/23 10:43 Pulse Ox 98 01/12/23 10:43 O2 Flow Rate CV Function Including HR & BP: Stable Pain Control: Satisfactory Nausea & Vomiting: Negative Mental Status: Baseline Respiratory Status: Airway Patent Hydration Status: Satisfactory Anesthesia Complications: None
== END 2023-01-12 07:20 | disposition home or self-care (01) ==
LOC: SDS 07:19
PROVIDERS: ATTEND Surgery
PROC: 0DBK8ZZ Excision of Ascending Colon, Via Natural or Artificial Opening Endoscopic (ICD-10-PCS; principal; 2023-01-12 08:30)
DX: Z08 Encounter for follow-up examination after completed treatment for malignant neoplasm (principal); D12.2 Benign neoplasm of ascending colon; E11.22 Type 2 diabetes mellitus with diabetic chronic kidney disease; I12.9 Hypertensive chronic kidney disease with stage 1 through stage 4 chronic kidney disease, or unspecified chronic kidney disease; N18.32 Chronic kidney disease, stage 3b; Z90.49 Acquired absence of other specified parts of digestive tract; E66.9 Obesity, unspecified; Z68.39 Body mass index [BMI] 39.0-39.9, adult; Z98.0 Intestinal bypass and anastomosis status; Z85.048 Personal history of other malignant neoplasm of rectum, rectosigmoid junction, and anus; Z79.4 Long term (current) use of insulin
CPT/HCPCS: 45380; J7120

== ENCOUNTER 2023-02-10 08:00 | Outpatient (CLI) | payer MEDICARE, OTHER | END 2023-02-10 23:59 | disposition home or self-care (01) | LOC: LAB.R 08:00 | PROVIDERS: ATTEND Podiatrist | DX: E11.622 Type 2 diabetes mellitus with other skin ulcer (principal) | CPT/HCPCS: 87070; 87077; 87181; 87205 ==

== ENCOUNTER 2023-04-08 07:56 | Outpatient (CLI) | payer MEDICARE, OTHER ==
[2023-04-08 15:43] LABS: CALCIUM 10.2 mg/dL (8.5-10.3); CREATININE 1.6 mg/dL (0.6-1.3); POTASSIUM 3.8 mmol/L (3.5-4.5)
[2023-04-08 21:06] LABS: ESTIMATED AVERAGE GLUCOSE 151 mg/dL (70-100); HEMOGLOBIN A1c% 6.9 % (4.27-6.07)
== END 2023-04-08 07:57 | disposition home or self-care (01) ==
LOC: LAB.S 07:56
PROVIDERS: ATTEND Physician Assistant
DX: E11.9 Type 2 diabetes mellitus without complications (principal)
CPT/HCPCS: 36415; 80048; 83036

== ENCOUNTER 2023-12-21 10:40 | Outpatient (CLI) | payer MEDICARE, OTHER ==
[2023-12-21 15:24] LABS: THYROID STIMULATING HORMONE 3.39 uIU/mL (0.34-5.60)
[2023-12-21 15:53] LABS: CHOLESTEROL 191 mg/dL; HDL CHOLESTEROL 63 mg/dL; LDL CHOLESTEROL,CALCULATED 95 mg/dL; LDL/HDL RATIO 1.5 (<4.4); TRIGLYCERIDES 165 mg/dL (48-352); VLDL CHOLESTEROL 33 mg/dL
[2023-12-21 20:05] LABS: ESTIMATED AVERAGE GLUCOSE 137 mg/dL (70-100); HEMOGLOBIN A1c% 6.4 % (4.27-6.07)
== END 2023-12-21 10:41 | disposition home or self-care (01) ==
LOC: LAB.S 10:40
PROVIDERS: ATTEND Physician Assistant
DX: E11.9 Type 2 diabetes mellitus without complications (principal); E03.9 Hypothyroidism, unspecified
CPT/HCPCS: 36415; 80061; 82043; 82570; 83036; 83721; 84439; 84443